=== PATIENT | female | born 1995 | race Caucasian/White ===

== ENCOUNTER 2017-02-04 21:12 | Emergency (ER) | payer MEDICAID ==
[~2017-02-04] VITALS: Ht 152.4 cm; Wt 64.9 kg
[~2017-02-04 21:12] MED LIST: CYCL10TA PO; IBUP-232 PO; NITR1CAP36 PO; PRED20 PO; TRI-TAB PO; ZITH250T PO
[2017-02-04 21:20] VITALS: BP 108/56; TEMP 102.8; O2SAT 95
[2017-02-04] MEDS ORDERED: SODIUM CHLOR 0.9% 1000 ML INJ 1,000 ML IV SCH (21:45)
[2017-02-04] MEDS ORDERED: KETOROLAC TROMETHAMINE 60 MG/2 ML (IM) VIAL IVP ONE (21:45)
[2017-02-04] MEDS ORDERED: ONDANSETRON HCL 4 MG/2 ML VIAL IV ONE (21:45)
[2017-02-04] MEDS ORDERED: SODIUM CHLORIDE 0.9% FLUSH 10 ML FLUSH IVF PRN (21:45)
--- NOTE | 2017-02-04 21:48 | PD ---
HPI Chief Complaint: Fever Time Seen by Provider: 21:38 Travel History International Travel<30 days: No Contact w/Intl Traveler<30days: No Traveled to known affect area: No History of Present Illness HPI The patient is a 21-year-old female that complains of fever cough and vomiting without diarrhea for about 3 days. The cough is productive of white and yellow sputum. She does have generalized myalgias. She does smoke one pack a day. She states she also has a sore throat and some ear pain bilaterally. She denies any blood in the vomitus. PFSH Past Medical History Medical History: Denies Significant Hx Diminished Hearing: No Immunizations Current: Yes Tetanus Vaccination: > 5 Years Influenza Vaccination: No ?: Not LMP: 01/01/17 Past Surgical History Surgical History: No Previous Surgery Social History Alcohol Use: No Tobacco Use: Yes (1/2 PACK A DAY ) Substance Use: No Allergies-Medications (Allergen,Severity, Reaction): Coded Allergies: Sulfa (Sulfonamide Antibiotics) (Unverified Allergy, Intermediate, Hives , all over. , 02/04/17) Reported Meds & Prescriptions Reported Meds & Active Scripts Active Ibuprofen 600 Mg Tab 600 Mg PO TID Flexeril (Cyclobenzaprine HCl) 10 Mg Tab 10 Mg PO TID Prednisone 20 Mg Tab 40 Mg PO DAILY 40 MG twice a day x 3 days, then 20 MG daily x 3 days, then 10 MG daily x 3 days Nitrofurantoin Macrocrystal 100 Mg Cap 100 Mg PO BID Tri-Sprintec (Ethinyl Estradiol/Norgestimate) 1 Tab Tab 1 Tab PO DAILY Zithromax Z-Johnathon (Azithromycin) 250 Mg Tab 250 Mg PO DIRECTED 500 MG (2 TABLETS) PO ON DAY 1, THEN 250 MG (1 TABLET) PO ON DAYS 2 TO 5. Review of Systems Except as stated in HPI: all other systems reviewed are Neg Physical Exam Narrative GENERAL: The patient is alert, oriented 3 in no respiratory distress. Her vital signs show temperature 102.8 with pulse rate of 121 and blood pressure 108 /56. Oximetry is 95% on room air and respirations are 22. SKIN: Focused skin assessment warm/dry. No skin rash is seen. HEAD: Atraumatic. Normocephalic. EYES: Pupils equal and round. No scleral icterus. No injection or drainage. ENT: No nasal bleeding or discharge. Mucous membranes pink and moist. The right tympanic membrane is not seen due to wax in the ear canal but the left tympanic membrane and canal are normal. The throat shows erythema without exudate or abscess. NECK: Trachea midline. No JVD. There is no meningismus present. CARDIOVASCULAR: Regular rate and rhythm. No murmur appreciated. RESPIRATORY: No accessory muscle use. Clear to auscultation. Breath sounds equal bilaterally. GASTROINTESTINAL: Abdomen soft, non-tender, nondistended. Hepatic and splenic margins not palpable. No guarding or rebound is present. MUSCULOSKELETAL: No obvious deformities. No clubbing. No cyanosis. No edema. NEUROLOGICAL: Awake and alert. No obvious cranial nerve deficits. Motor grossly within normal limits. Normal speech. PSYCHIATRIC: Appropriate mood and affect; insight and judgment normal. Data Data Last Documented VS Vital Signs Date Time Temp Pulse Resp B/P (MAP) Pulse Ox O2 Delivery O2 Flow Rate FiO2 02/04/17 21:38 Room Air 02/04/17 21:20 102.8 121 22 108/56 (73) 95 Orders Orders Complete Blood Count With Diff (02/04/17 21:38) Comprehensive Metabolic Panel (02/04/17 21:38) Influenzae A/B Antigen (02/04/17 21:38) Urinalysis - C+S If Indicated (02/04/17 21:38) Sodium Chloride 0.9% Flush (Ns Flush) (02/04/17 21:45) Group A Rapid Strep Screen (02/04/17 21:38) Ondansetron Inj (Zofran Inj) (02/04/17 21:45) Sodium Chlor 0.9% 1000 Ml Inj (Ns 1000 M (02/04/17 21:45) Ketorolac Inj (Toradol Inj) (02/04/17 21:45) Strep Culture (Group A) (02/04/17 21:52) Labs Laboratory Tests Test 02/04/17 21:52 02/04/17 22:10 White Blood Count 4.8 TH/MM3 Red Blood Count 4.76 MIL/MM3 Hemoglobin 13.6 GM/DL Hematocrit 41.0 % Mean Corpuscular Volume 86.3 FL Mean Corpuscular Hemoglobin 28.7 PG Mean Corpuscular Hemoglobin Concent 33.2 % Red Cell Distribution Width 13.6 % Platelet Count 232 TH/MM3 Mean Platelet Volume 7.8 FL Neutrophils (%) (Auto) 76.2 % Lymphocytes (%) (Auto) 13.2 % Monocytes (%) (Auto) 10.0 % Eosinophils (%) (Auto) 0.1 % Basophils (%) (Auto) 0.5 % Neutrophils # (Auto) 3.7 TH/MM3 Lymphocytes # (Auto) 0.6 TH/MM3 Monocytes # (Auto) 0.5 TH/MM3 Eosinophils # (Auto) 0.0 TH/MM3 Basophils # (Auto) 0.0 TH/MM3 CBC Comment DIFF FINAL Differential Comment Blood Urea Nitrogen 11 MG/DL Creatinine 0.71 MG/DL Random Glucose 112 MG/DL Total Protein 8.0 GM/DL Albumin 3.8 GM/DL Calcium Level 8.7 MG/DL Alkaline Phosphatase 79 U/L Aspartate Amino Transf (AST/SGOT) 21 U/L Alanine Aminotransferase (ALT/SGPT) 19 U/L Total Bilirubin 0.3 MG/DL Sodium Level 138 MEQ/L Potassium Level 3.4 MEQ/L Chloride Level 106 MEQ/L Carbon Dioxide Level 24.7 MEQ/L Anion Gap 7 MEQ/L Estimat Glomerular Filtration Rate 106 ML/MIN Urine Color YELLOW Urine Turbidity CLEAR Urine pH 6.0 Urine Specific [place] 1.022 Urine Protein TRACE mg/dL Urine Glucose (UA) NEG mg/dL Urine Ketones 80 OR GREATER mg/dL Urine Occult Blood NEG Urine Nitrite NEG Urine Bilirubin NEG Urine Leukocyte Esterase NEG Urine RBC 0-2 /hpf Urine WBC 0-2 /hpf Urine Squamous Epithelial Cells 6-8 /hpf Urine Bacteria RARE /hpf Microscopic Urinalysis Comment CULT NOT INDICATED MDM Medical Decision Making Medical Screen Exam Complete: Yes Emergency Medical Condition: Yes Medical Record Reviewed: Yes Interpretation(s) The CBC is normal with a white count of only 4800. The complete metabolic profile is normal except for a potassium of 3.4. The influenza A/B antigen is positive for flu a antigen. Differential Diagnosis Flu syndrome, nonspecific viral syndrome, pneumonia, bronchitis, Narrative Course The patient has influenza A. She should rest, increase liquid intake. She should follow-up with her primary care physician next week. Diagnosis Primary Impression: Influenza A Additional Instructions: Take Tylenol, [id number] Motrin, rest and increase liquids and let your body fight the flu. If worse, return to the emergency department because of fluid can reduce resistance to bacterial infections. Also, follow up with your primary care physician next week. Med/Other Pt SpecificInfo: No Change to Meds Disposition: 01 DISCHARGE HOME Condition: Stable Ori Vee MD Feb 04, 2017 21:48
[2017-02-04 22:18] LABS: BILIRUBIN, URINE NEG (NEG); BLOOD, URINE NEG (NEG); GLUCOSE,URINE NEG (NEG); KETONE, URINE 80 OR GREATER mg/dL (NEG); NITRITE,URINE NEG (NEG); URINE LEUKOCYTE ESTERASE NEG (NEG)
[2017-02-04 22:20] LABS: AUTOMATED NEUTROPHIL # 3.7 TH/MM3 (1.8-7.7); BASOPHIL % 0.5 % (0.0-2.0); EOSINOPHIL % 0.1 % (0.0-4.0); HEMOGLOBIN 13.6 GM/DL (11.6-15.3); LYMPH % 13.2 % (9.0-44.0); LYMPHOCYTE # 0.6 TH/MM3 (1.0-4.8); MEAN CELL VOLUME 86.3 FL (80.0-100.0); MEAN CORPUSCULAR HEMOGLOBIN 28.7 PG (27.0-34.0); MEAN CORPUSCULAR HGB CONC 33.2 % (32.0-36.0); MEAN PLATELET VOLUME 7.8 FL (7.0-11.0); MONOCYTE # 0.5 TH/MM3 (0-0.9); NEUT % 76.2 % (16.0-70.0); PLATELET COUNT 232 TH/MM3 (150-450); RED BLOOD COUNT 4.76 MIL/MM3 (4.00-5.30); RED CELL DISTRIBUTION WIDTH 13.6 % (11.6-17.2); WHITE BLOOD COUNT 4.8 TH/MM3 (4.0-11.0)
[2017-02-04 22:28] LABS: URINE COLOR YELLOW (YELLW/STRAW); WBC, URINE 0-2 /hpf (0-5)
[2017-02-04 22:29] LABS: BACTERIA, URINE RARE /hpf; RBC, URINE 0-2 /hpf (0-3)
[2017-02-04 22:30] LABS: CHLORIDE 106 MEQ/L (98-107); SODIUM (NA) 138 MEQ/L (136-145)
[2017-02-04 22:33] LABS: CALCIUM 8.7 MG/DL (8.5-10.1)
[2017-02-04 22:34] LABS: ALBUMIN 3.8 GM/DL (3.4-5.0); BICARBONATE 24.7 MEQ/L (21.0-32.0); BLOOD UREA NITROGEN 11 MG/DL (7-18); GLUCOSE,RANDOM 112 MG/DL (74-106)
[2017-02-04 22:37] LABS: ALT (GPT) 19 U/L (9-42); AST (GOT) 21 U/L (16-38); CREATININE 0.71 MG/DL (0.50-1.00); GLOMERULAR FILTRATION RATE 106 ML/MIN (>89)
[2017-02-04 22:38] LABS: TOTAL BILIRUBIN ADULT 0.3 MG/DL (0.2-1.0)
[2017-02-04 22:40] LABS: ALKALINE PHOSPHATASE 79 U/L (45-117)
[2017-02-04 23:05] VITALS: BP 132/75; TEMP 99
== END 2017-02-04 23:08 | disposition home or self-care (01) ==
LOC: PHED 21:12
DX: J10.1 Influenza due to other identified influenza virus with other respiratory manifestations (principal); F17.210 Nicotine dependence, cigarettes, uncomplicated
CPT/HCPCS: 80053; 81001; 85025; 87081; 87804; 87880; 96361; 96374; 96375; 99284; J1885; J2405; J7030